=== PATIENT | female | born 1985 | race Caucasian/White ===

== ENCOUNTER → 2023-09-17 10:22 | Outpatient (REF) | payer OTHER, SELFPAY | LOC: RAD 10:22 | PROVIDERS: ATTENDING PHYSICIAN Nurse Practitioner Adult Health | DX: M54.2 Cervicalgia (principal); M54.50 Low back pain, unspecified; M54.6 Pain in thoracic spine | CPT/HCPCS: 72050; 72072; 72110 ==

== ENCOUNTER → 2023-12-30 07:33 | Outpatient (REF) | payer OTHER, SELFPAY | LOC: EMG 07:33 | PROVIDERS: ATTENDING PHYSICIAN Nurse Practitioner Adult Health | DX: R20.0 Anesthesia of skin (principal) | CPT/HCPCS: 95886; 95909 ==

== ENCOUNTER → 2024-01-25 07:01 | Outpatient (REF) | payer OTHER, SELFPAY | LOC: MRI 07:01 | PROVIDERS: ATTENDING PHYSICIAN Nurse Practitioner Adult Health; FAMILY PHYSICIAN Family Medicine | DX: M50.10 Cervical disc disorder with radiculopathy, unspecified cervical region (principal) | CPT/HCPCS: 72141 ==